=== PATIENT | female | born 1955 | race Caucasian/White ===

== ENCOUNTER 2017-03-06 14:54 | Inpatient (IN) | payer MEDICARE, MEDICAID ==
[~2017-03-06] VITALS: Ht 172.7 cm; Wt 94.5 kg
[2017-03-06 15:47] LABS: BILIRUBIN,URINE NEGATIVE (NEGATIVE); UROBILINOGEN,URINE NORMAL (NEGATIVE)
[2017-03-06 15:49] LABS: APPEARANCE,URINE CLEAR (CLEAR); UA COLOR YELLOW (YELLOW)
--- NOTE | 2017-03-06 15:56 | DIREP ---
PROCEDURE:CHEST 2 VIEWS COMPARISON:None. INDICATIONS:medical clearance FINDINGS: LUNGS/PLEURA:No significant pulmonary parenchymal abnormalities. No effusions. VASCULATURE:Normal. Unremarkable pulmonary vasculature. CARDIAC:Normal. No cardiac silhouette abnormality or cardiomegaly. MEDIASTINUM:Normal. No visible mass or adenopathy. BONES:Mild degenerative disc disease and spondylosis without visible acute abnormalities. OTHER:Negative. CONCLUSION:No acute disease. Dictated by: Mak Eisenberg MD on 03/06/2017 at 03:54 PM
[2017-03-06 15:58] LABS: BASOPHIL % 0.5 % (0.0-0.2); EOSINOPHIL # 0.2 10^3/uL (0.0-0.2); HEMATOCRIT 46.8 % (36.0-46.0); HEMOGLOBIN 14.7 g/dL (12.0-15.0); LYMPHOCYTES # 2.8 10^3/uL (1.0-4.8); LYMPHOCYTES % 34.8 % (24.0-44.0); MEAN CELL HGB 30.3 pg (26-34); MEAN CELL HGB CONCENTRATION 31.4 g/dL (33-37); MEAN CORP VOLUME 96.5 fL (78-100); MEAN PLATELET VOLUME 10.9 fL (7.8-11.0); MONOCYTES # 0.7 10^3/uL (0.3-0.8); MONOCYTES % 8.2 % (5.0-12.0); NEUTROPHIL # 4.2 10^3/uL (1.8-7.7); NEUTROPHILS % 53.4 % (41.0-85.0); RED CELL DISTRIBUTION WIDTH 13.8 % (11.5-14.5); WHITE BLOOD CELL 7.9 10^3/uL (4.5-11.0)
[2017-03-06 16:01] LABS: UR BENZODIAZEPINE QUAL NEGATIVE (NEGATIVE); UR COCAINE QUAL NEGATIVE (NEGATIVE)
[2017-03-06 16:27] LABS: ABG PCO2 44.6 mmHg (35.0-45.0); ABG PH 7.382 (7.350-7.450); BE(B) 0.5 mmol/L (-2.0-2.0); HCO3act 25.9 mmol/L (22.0-26.0); pO2 66.4 mmHg (75.0-100.0)
[2017-03-06 16:41] LABS: ALANINE AMINOTRANSFERASE 36 U/L (12-78); ALKALINE PHOSPHATASE 46 U/L (50-136); ASPARTATE AMINO TRANSFERASE 15 U/L (0-35); CALCIUM 9.8 mg/dL (8.4-10.5); CARBON DIOXIDE 27.4 mmol/L (20.0-32); CHOLESTEROL 90 mg/dL (120-240); GLUCOSE 102 mg/dL (70-110); HDL CHOLESTEROL 40 mg/dL (32-96)
--- NOTE | 2017-03-06 16:47 | NUR ---
DR JAGRUTI POLLARD ON PHONE WITH DR CHAND
--- NOTE | 2017-03-06 16:56 | ER.PDOC ---
General Chief Complaint: Medical Clearance Stated Complaint: MEDICAL CLEARANCE Time seen by MD: 15:00 Source: patient History of Present Illness Initial Comments agitated, aggressive behavior Timing/Duration: week Severity: moderate Associated Symptoms: Angry, Frustrated, Agitated, Hostile, Paranoid Prior symptoms/Treatment: Similar symptoms previous Allergies: Coded Allergies: No Known Allergies (Unverified , 03/06/17) Past Medical History Medical History: high cholesterol, thyroid disease Social History Smoking: non-smoker Alcohol Use: none Drug Use: none Review of Systems Constitutional: no symptoms reported EENTM: no symptoms reported Respiratory: no symptoms reported Cardiovascular: no symptoms reported Gastrointestinal: no symptoms reported Genitourinary: no symptoms reported Musculoskeletal: no symptoms reported Skin: no symptoms reported Physical Exam General Appearance: No acute distress, Alert EENT: No nystagmus Neck: Non-Tender Respiratory: chest non-tender, lungs clear, normal breath sounds Cardiovascular: Normal Peripheral Pulses, Regular Rate, Rhythm, No Edema Gastrointestinal: Normal Bowel Sounds Extremities: Non-Tender Neurological/Psychiatric: Alert Behavior/Eye Contact/Speech: Other (rushed speech, irritable, labile mood) Thoughts/Hallucinations: Delusions Skin: Normal Color Results/Orders Results/Orders Laboratory Tests Test 03/06/17 00:00 03/06/17 15:25 03/06/17 16:24 Urine Collection Type Unknown Urine Color Yellow (YELLOW) Urine Appearance Clear (CLEAR) Urine Bilirubin Negative MG/DL (NEGATIVE) Urine Ketones Negative (NEGATIVE) Urine Specific [place] 1.010 (1.005-1.035) Urine pH 7 (5.0-6.0) Urine Protein Negative (NEGATIVE) Urine Urobilinogen Normal (NEGATIVE) Urine Nitrate Negative (NEGATIVE) Urine Leukocyte Esterase Negative (NEGATIVE) Urine Blood Negative (NEGATIVE) Urine Glucose Normal (NEGATIVE) Opiates Screen Negative (NEGATIVE) Barbiturate Screen Negative (NEGATIVE) Urine Tricyclic Antidepressants Negative (NEGATIVE) Phencyclidine (PCP) Screen Negative (NEGATIVE) Amphetamines Screen Negative (NEGATIVE) Benzodiazepines Screen Negative (NEGATIVE) Cocaine Screen Negative (NEGATIVE) Ur Tetrahydrocannabinol (THC) Scrn Negative (NEGATIVE) White Blood Count 7.9 10^3/uL (4.5-11.0) Red Blood Count 4.85 10^6/uL (4.00-5.20) Hemoglobin 14.7 g/dL (12.0-15.0) Hematocrit 46.8 % (36.0-46.0) Mean Corpuscular Volume 96.5 fL (78-100) Mean Corpuscular Hemoglobin 30.3 pg (26-34) Mean Corpuscular Hemoglobin Concent 31.4 g/dL (33-37) Red Cell Distribution Width 13.8 % (11.5-14.5) Platelet Count 191 10^3/uL (150-400) Mean Platelet Volume 10.9 fL (7.8-11.0) Neutrophils (%) (Auto) 53.4 % (41.0-85.0) Lymphocytes (%) (Auto) 34.8 % (24.0-44.0) Monocytes (%) (Auto) 8.2 % (5.0-12.0) Neutrophils # (Auto) 4.2 10^3/uL (1.8-7.7) Lymphocytes # (Auto) 2.8 10^3/uL (1.0-4.8) Monocytes # (Auto) 0.7 10^3/uL (0.3-0.8) Absolute Immature Granulocyte (auto 0.01 10^3 u/L (0-2) Eosinophils % 3.0 % (0.0-5.0) Basophils % 0.5 % (0.0-0.2) Basophils # 0.0 10^3/uL (0.0-0.1) Eosinophil Count 0.2 10^3/uL (0.0-0.2) Sodium Level 145 mmol/L (132-145) Potassium Level 3.8 mmol/L (3.6-5.2) Chloride Level 108.0 mmol/L (96-109) Carbon Dioxide Level 27.4 mmol/L (20.0-32) Anion Gap 13.4 Blood Urea Nitrogen 12 mg/dL (7-18) Creatinine 0.88 mg/dL (0.59-1.40) Estimated GFR () 78.5 BUN/Creatinine Ratio 13.0 Glucose Level 102 mg/dL (70-110) Hemoglobin A1c 6.2 % (4.2-6.2) Calculated Osmolality 299.2 Calcium Level 9.8 mg/dL (8.4-10.5) Total Bilirubin 0.2 mg/dL (0.2-1.0) Aspartate Amino Transf (AST/SGOT) 15 U/L (0-35) Alanine Aminotransferase (ALT/SGPT) 36 U/L (12-78) Alkaline Phosphatase 46 U/L (50-136) Total Creatine Kinase 35 U/L (26-192) Creatine Kinase MB 0.4 ng/mL (0.5-3.6) Troponin I < 0.02 ng/mL (0.00-0.05) C-Reactive Protein 0.10 mg/dL (0.00-5.00) Pro-B-Type Natriuretic Peptide 42 pg/mL (0-125) Total Protein 6.8 g/dL (6.4-8.2) Albumin 3.6 g/dL (3.4-5.0) Globulin 3.2 Triglycerides Level 111 mg/dL (20-200) Cholesterol Level 90 mg/dL (120-240) LDL Cholesterol, Calculated 27.8 VLDL Cholesterol 22.2 HDL Cholesterol 40 mg/dL (32-96) Cholesterol Ratio (LDL/HDL) 0.6 Cholesterol/HDL Ratio [id number] Thyroid Stimulating Hormone (TSH) 3.435 mIU/mL (0.358-3.740) Valproic Acid (Depakene) Level < 3 ug/mL (50-100) [place] Level 0.85 mmol/L (0.6-1.2) Percent Immature Gran (Cell Imm) 0.10 % (0.00-0.50) Blood Gas Sample Site Rt radial artery Blood Gas pH 7.382 (7.350-7.450) Blood Gas PCO2 44.6 mmHg (35.0-45.0) Blood Gas PO2 66.4 mmHg (75.0-100.0) Blood Gas HCO3 25.9 mmol/L (22.0-26.0) Blood Gas Base Excess 0.5 mmol/L (-2.0-2.0) Har[place] Test Positive Arterial Blood Oxygen Saturation 92.6 % (95-) Deoxyhemoglobin 6.9 % (0.2-0.6) Carboxyhemoglobin 6.0 % (0.5-1.5) Methemoglobin 0.2 % (0.2-0.6) Total Hemoglobin 15.2 % (13.5-17.5) Total Oxygen Concentration 18.6 % (13.5-17.5) Lactic Acid (Blood Gas) 1.3 MMOL/L (0.5-1.0) Blood Gas Temperature 37 Oxygen Delivery Method (LAB) Ra FiO2 21 % (20-101) Bicarbonate 27.3 mmol/L (23-27) Departure Time of Disposition: 16:55 Disposition: 09 ADMITTED INPATIENT Impression: Primary Impression: Psychosis Condition: Stable Referrals: PCP,UNKNOWN (PCP) PRIMARY CARE PROVIDER TREY POLLARD MD March 06, 2017 16:56
--- NOTE | 2017-03-06 17:30 | NUR ---
On unit Pt ambulated onto unit alongside x [address] [facility] staff member, Fiordaliza Lowery, RN, and security. Pt demanding to be taken out to smoke, repeatedly stating, "I'm supposed to be here 3 days. They have my papers. You're going to let me out of here in 3 days." Pt threatening staff, stating, "I'm going to take you fucking bitches to long term if you don't let me out of here." Continues to exhibit inappropriate behavior, unable to be redirected with verbalization.
[2017-03-06 17:32] VITALS: BP 150/72
--- NOTE | 2017-03-06 17:34 | PRM.ACF1 ---
Admission Criteria Forms PSYCHIATRIC DISORDERS Clinical Indications for Inpatient Care (Place 'X' for any and all applicable criteria): Ongoing inpatient care may be needed for ANY ONE of the following(1)(2)(3)(4)(6) (7)(8): [ ]I. Danger to self or others not manageable at lower level of care. [ ]II. Grave disability (eg, inability to perform self care necessary at lower level of care) [ ]III. Agitation or inappropriate behavior interfering with care for primary condition (eg, attempting to discontinue lines or drains prematurely, unable to cooperate with respiratory care) [X]IV. Severe disability or disorder indicated by ALL of the following: [X]a) Severe behavioral health disorder-related symptoms or condition indicated by ANY ONE of the following: [ ]i) Severe problem with cognition, memory, judgment, or impulse control [X]ii) Severe clinical manifestations (eg, hallucinations, delusions, other acute psychotic symptoms, zhane, extreme agitation or anxiety) [X]b) Patient management at lower level of care is not feasible until acute intervention or modification is initiated. Extended stay beyond goal length of stay for the primary condition may be indicated when ANY ONE of the following is present: (1)(2)(3)(4): [ ]a) Patient is a danger to self or others and not manageable at lower level of care. [ ]b) Behavior crisis management, including physical or chemical restraints, is required and is not available at a lower level of care. [ ]c) Behavioral symptoms (e.g., agitation, somnolence, inappropriate behavior) are present, and are not manageable at a lower level of care. [ ]d) Patient cannot understand follow-up treatment and crisis plan. [ ]e) Provider and supports are not sufficiently available at lower level of care. [ ]f) Patient cannot participate (e.g., verify absence of plan for harm) and is in needed of monitoring. The original [facility] content created by [facility] [employer] has been revised. The portions of the content which have been revised are identified through the use of italic text or in bold, and [facility] has neither reviewed nor approved the modified material. All other unmodified content is copyright [facility]. Please see references footnoted in the original [facility] edition 2016 Physician order is complete/pr: Yes JOVANY MCKEON PRIMERA-PEÑA March 06, 2017 17:34
[2017-03-06] MEDS ORDERED: ATOR20TA PO (17:40)
[2017-03-06] MEDS ORDERED: SERT50TA PO (17:40)
[2017-03-06] MEDS ORDERED: FLUT16SP (17:40)
[2017-03-06] MEDS ORDERED: ZIPR40CA2 PO (17:40)
[2017-03-06] MEDS ORDERED: LITH300C PO (17:40)
[2017-03-06] MEDS ORDERED: LEVO50TA6 PO (17:40)
[2017-03-06] MEDS ORDERED: CHOL100011 PO (17:40)
[2017-03-06] MEDS ORDERED: BENZ1TAB5 PO (17:40)
[2017-03-06] MEDS ORDERED: MAGN400O4 PO (17:40)
[2017-03-06] MEDS ORDERED: CETI10TA18 PO (17:40)
--- NOTE | 2017-03-06 17:46 | NUR ---
Dr. Eduardo Clark called and notified regarding pt's behaviors, received new orders, see EMAR.
[2017-03-06] MEDS ORDERED: HALDOL PO PRN (18:00)
[2017-03-06] MEDS ORDERED: ATIVAN IM PRN (18:00)
[2017-03-06] MEDS ORDERED: HALDOL IM PRN (18:00)
[2017-03-06] MEDS ORDERED: GEODON ONE (18:41)
[2017-03-06 19:15] VITALS: BP 116/64
[2017-03-06] MEDS: DEPAKOTE ER PO SCH (20:42)
[2017-03-06] MEDS: GEODON PO SCH (20:42)
[2017-03-06] MEDS: ATIVAN PO PRN (21:02)
--- NOTE | 2017-03-06 21:14 | NUR ---
medications Patient aggitated cursing staff and insisting on going out to smoke, calling staff liars about the smoking policy,RN notified, ativan 1mg given po per prn orders at 2101
--- NOTE | 2017-03-06 22:12 | NUR ---
medications No adverse reactions noted to ID of ativan and depakote at this time
--- NOTE | 2017-03-07 01:51 | NUR ---
behaviors PT. IN DAY ROOM FOLLOWING SHIFT REPORT, DEMANDING TO GO SMOKE,CALLING STAFF FUCKING LIARS AND CALLING STAFF INAPPROPRIATE NAMES. PT. WAS YELLING IN LOUD VOICE , EXPRESSES HER ANGER AND GOES TO HER ROOM THEN SHORTLY RETURNED SAYING SAME ABOVE. PT.EXHIBITING IMPULSIVE,LABILE BEHAVIORS AND CONTINUES TO CUSS THE STAFF AND CHECK CLERK. PT. WALKED DOWN HALLWAY ON HER WAY TO HER ROOM AND TOLD NURSE,'I'LL BEAT THE SHIT OUT OF YOU BITCH." TRAVEL TICKETING REVIEWER HAS BEEN STAYING ON UNIT AT TIMES. ONCE PT. SUDDENLY CAME OUT OF HER ROOM TO NURSE'S STATION,DEMANDED TO GO SMOKE AND WHEN NURSE TOLD HER AGAIN THAT THIS IS A NO SMOKING FACILITY PT. REACHED OVER THE COUNTER AND POINTED HER FINGER AT NURSE AND CALLED HER A LIAR AND CURSING. PT. HAS BEEN OFFERED A NICOTINE PATCH SEVERAL TIMES THIS SHIFT BUT SHE REFUSED. REFUSED SNACKS. PT. RECEIVED ATIVAN 1 MG PO AT 2101. PT. WENT TO HER ROOM AND LAID DOWN ON BED AT 2104. HS MEDICATIONS WERE OFFERED AND PT. DID TAKE MEDICATION. RESTING IN BED WITH EYES CLOSED ,SNORING AT THIS TIME.
[2017-03-07] MEDS ORDERED: GEODON ONE (06:16)
--- NOTE | 2017-03-07 06:18 | NUR ---
behaviors Pt. slept 5.5 hours this shift. pt. is in hallway at this time cursing staff AND DEMANDING TO GO SMOKE. PT. LOOKED IN PEER'S ROOM FROM HALLWAY AND STATED THAT WHO EVER IS IN THAT ROOM STOLE HER CLOTHES. PT. NOT REDIRECTABLE
[2017-03-07 08:08] VITALS: BP 115/66
[2017-03-07] MEDS: COGENTIN PO SCH (08:18)
[2017-03-07] MEDS: ATIVAN PO PRN ×2 (08:18→20:24)
[2017-03-07] MEDS: GEODON PO SCH ×3 (08:18→20:25)
[2017-03-07] MEDS: CELEXA PO SCH (08:18)
--- NOTE | 2017-03-07 08:20 | NUR ---
Behavior Pt verbally aggressive, cursing @ staff and other pt's, pacing calvo. Unable to be redirected with verbalization.
--- NOTE | 2017-03-07 08:20 | NUR ---
BEHAVIOR PT IS CURSING STAFF WHEN EXPLAINED THAT CAN NOT GO SMOKE DUE TO BEING A NON SMOKING FACILITY. PT WAS GIVEN A COPY OF THE RULES THAT EXPLAINED THE POLICY. STATED DID NOT WANT TO READ THAT. IS GOING BACK AND FORTH FROM HER ROOM TO THE DAY ROOM. ASKING EVERYONE THAT SHE SEES. WHEN MEDICAL RECORDS CAME IN SHE ASKED HIM AND CURSED HIM WHEN HE EXPLAINED THE POLICY ALSO. ATIVAN 1MG PO GIVEN FOR BEHAVIOR. WILL MONITOR.
--- NOTE | 2017-03-07 08:34 | NUR ---
MMSE: 03/28 PT REFUSED MOST OF THIS ASSESSMENT STATING THAT THIS WORKER IS A "FU----- BITCH AND A NIG-- WHO IS HAVING SEX WITH HER GRANDDAUGHTER." THIS WORKER LEFT THE ROOM. Addendum: 03/07/17 at 0837 by Francisca Hough LMSW, RYAN DHALIWAL Amended: Links added.
--- NOTE | 2017-03-07 08:40 | NUR ---
STATE PLACEMENT: SW CONTACTED [facility] CRISES LINE FOR EVALUATION FOR STATE PLACE PLACEMENT DUE TO IMPULSIVE, AGGRESSIVE AND PSYCHOTIC BEHAVIORS. PT HAS BEEN EXTREMELY VERBALLY AGGRESSIVE TOWARD STAFF AND OTHER PATIENTS TO THE POINT THAT SHE IS SCARING PATIENTS AND MAKING THEM TEARFUL. PT IS REFUSING CARE WELL ASSESSMENTS. [facility] WORKER CALLED BACK AND INFORMED THIS WORKER THAT HE WILL BE CALLING HIS REWIND OPERATOR AND WORKER WHO ASSISTS IN PLACING A PATIENT IN A [facility]. SS TO FOLLOW.
--- NOTE | 2017-03-07 09:15 | NUR ---
Behavior Pt was cooperative with shower, after ADL complete, came to nurse's station and stated, "I won't act out if you'll give me some coffee, please." Pt was given luke-warm coffee, thanked staff and went to room to apply lotion to BLE.
--- NOTE | 2017-03-07 09:45 | NUR ---
VSEE Pt was seen by Dr. Clark via telemed. No new orders received @ this time. Pt agreed to talk to Dr. Clark, answered all questions. Denies depression, states, "I feel fine." Alert and oriented x 3, exhibits delusional thinking. Believes staff at [facility] are trying to kill her. Reports wishes not to go back to facility, and reports wanting to go live in a facility in [place], [place]. Otherwise, pt continues to inquire about smoking @ facility, stated, "They told me at [facility] that you have a smoking area, you go smoke every 3 hours." Pt was able to be redirected.
--- NOTE | 2017-03-07 09:45 | NUR ---
BEHAVIOR PT IS IN THE DAY ROOM IN GROUP. IS IN A MORE COOPERATIVE MOOD AT THIS TIME. IS PARTICIPATING IN GROUP.
--- NOTE | 2017-03-07 11:50 | HPH ---
ADMIT DATE: 03/06/2017 PSYCHIATRIC ADMISSION NOTE TIME: 99:00-10:00. CHIEF COMPLAINT: Acute psychosis with depression. HISTORY OF PRESENT ILLNESS: This patient is an elderly female who has a diagnosis of schizoaffective disorder, bipolar type, who presents from the [facility] in [place]. She had been in the psychiatric hospital for days and had not responded, was discharged back to the [facility] and then was quite psychotic, delusional, agitated, labile, threatening and was sent to the [facility] under court order. She is showing evidence of psychosis with delusional thoughts, paranoia, ideas of reference, thought broadcasting and auditory hallucinations. She felt that the people in the ch[facility] were going to kill her and she was going to kill them before they kill her. Mood is depressed at this time. No manic symptoms. Mood depressed with disturbances in sleep, appetite, energy and concentration. The patient has been extremely threatening and volatile while on the unit just this brief period of time. She is being observed closely to prevent harm to herself and others. PAST PSYCHIATRIC HISTORY: Significant for schizoaffective disorder with multiple psychiatric hospitalizations in the past. PAST MEDICAL HISTORY: Coronary artery disease. ALLERGIES: NO KNOWN DRUG ALLERGIES. CURRENT MEDICATIONS: Valproic acid, which was just started at 250 mg, Celexa, which was just started at 10 mg and Geodon 40 mg 3 times a day. FAMILY PSYCHIATRIC HISTORY: Unknown at this time. SOCIAL HISTORY: The patient was living in a [facility] in [place], likely that she will be able to go back. She was raised in [place], and . She has 1 child, a daughter who is a home and school visitor. She attended some college, does smoke and does not drink alcohol. OBJECTIVE: VITAL SIGNS: Temperature 98.2, pulse 85, respirations 20, oxygen saturation 98%, blood pressure 116/56. REVIEW OF SYSTEMS: HEENT: Normal. RESPIRATORY: No shortness of breath, coughing or wheezing. CARDIAC: No chest pain or palpitations. GASTROINTESTINAL: No nausea, vomiting, diarrhea or constipation. GENITOURINARY: No difficulty with urination. EXTREMITIES: No swelling or edema. MUSCULOSKELETAL: No muscle pain. NEUROLOGIC: Normal. ENDOCRINE: Normal. MENTAL STATUS EXAMINATION: Reveals an alert female with decreased psychomotor activity. Concentration and memory are intact. Speech and language are normal. Orientation is full. Intelligence is average. Mood assessed as depressed. Affect is constricted. Insight and judgment are poor. Thought is illogical, positive delusional thought with acute psychotic symptoms. ASSESSMENT AND PLAN: DIAGNOSES: AXIS I: Schizoaffective disorder, bipolar type, depressed. AXIS II: Deferred. AXIS III: Refer to past medical history. AXIS IV: Stress of mental illness. AXIS V: Current global assessment of functioning of 20. TREATMENT PLAN: 1. This patient was admitted involuntarily to the [facility] and is being observed closely to prevent harm to herself and others. 2. She was placed on medications outlined above. 3. She is to participate in groups, therapies and activities. 4. [facility] upon how severe her psychotic symptoms get and how she responds to medications. Long Clark MD DR: RASHID/jackson JOB# [id number]
--- NOTE | 2017-03-07 13:38 | PCM.HP ---
History of Present Illness Reason for Visit: Psychosis and agitation History of Present Illness 61 y/o F with PMHx of HTN, HLD, Obesity, Dementia who presented with agitation and behavior disturbance at . Unable to obtain medical history or ROS from her because the patient is psychotic, agitated, and uncooperative. She has no acute medical issues and her chronic medical issues are stable. Past Medical History Cardiac: HTN, Hyperlipidemia Ab: Uncooperative, Poor eye contact, Hostile, Psychomotor agitation Past Surgical History: No pertinent hx Past Social History Smoke: No Alcohol: none Drugs: None Lives: Group Home Travel Hx EBOLA RISK:Travel to/contact w: No Is pt experiencing any Ebola s: No Review of Systems Constitutional: Other (Unable to obtain 2/2 psychosis and agitation) Eyes: Other (Unable to obtain 2/2 psychosis and agitation) ENT: Other (Unable to obtain 2/2 psychosis and agitation) Respiratory: Other Cardiovascular: Other (Unable to obtain 2/2 psychosis and agitation) Gastrointestinal: Other (Unable to obtain 2/2 psychosis and agitation) Genitourinary: Other (Unable to obtain 2/2 psychosis and agitation) Musculoskeletal: other (Unable to obtain 2/2 psychosis and agitation) Skin: Other (Unable to obtain 2/2 psychosis and agitation) Neurological: Other (Unable to obtain 2/2 psychosis and agitation) Allergies: Coded Allergies: No Known Allergies (Unverified , 03/06/17) Scheduled Atorvastatin 20MG (Lipitor 20MG), 20 MG PO HS, (Reported) Benztropine Mesylate (Benztropine Mesylate), 1 MG PO DAILY, (Reported) Cetirizine Hcl (Cetirizine Hcl), 1 TAB PO DAILY, (Reported) Cholecalciferol (Vitamin D3) (Vitamin D), 1 CAP PO DAILY, (Reported) Citalopram Hydrobromide (Celexa), 10 MG PO DAILY Divalproex Sodium (Depakote Er), 1,000 MG PO HS Fluticasone Propionate (Fluticasone Propionate), 2 SPR NA DAILY, (Reported) Levothyroxine Sodium (Levothyroxine Sodium), 1 TAB PO DAILY, (Reported) Olanzapine (Zyprexa Zydis), 7.5 MG SL BID Ziprasidone Hcl (Geodon), 1 CAP PO TID, (Reported) Scheduled PRN Lorazepam (Ativan), 1 MG PO Q6HR PRN for AGITATION Magnesium Hydroxide (Milk Of Magnesia), 400 MG PO BID PRN for CONSTIPATION, ( Reported) VTE VTE Risk Total Score: 2 VTE Risk Score VTE Risk: Score 0-1 = Low Risk (Aggressive mobilization; early ambulation; no VTE prophylaxis required) Score 2: Moderate Risk (Intermittent/Pneumatic Compression Device OR Lovenox/Heparin/Coumadin) Score 3-4: High Risk (Intermittent/Pneumatic Compression Device AND Lovenox/Heparin/Coumadin) Score > or =5: Highest Risk (Intermittent/Pneumatic Compression Device AND Lovenox/Heparin/Coumadin) Antico:Hep/LMWH/Coum/Xarelto: No Mechanical device ordered: No VTE VTE Present on Admission: No Currently receiving anticoagul: No VTE Risk Total Score: 2 Exam Vital Signs Vital Signs Date Time Temp Pulse Resp B/P (MAP) Pulse Ox O2 Delivery O2 Flow Rate FiO2 03/07/17 08:08 98.2 85 20 115/66 (82) 92 Room Air General Appearance: Alert, No acute distress, Other (Limited exam 2/2 psychosis and agitation) HEENT: Atraumatic, EOMI, Mucous membr. moist/pink, Other (Limited exam 2/2 psychosis and agitation) Respiratory: Other (Limited exam 2/2 psychosis and agitation) Cardiovascular: Other (Limited exam 2/2 psychosis and agitation) Abdominal: Other (Limited exam 2/2 psychosis and agitation) Extremities: Other Skin: Other (Limited exam 2/2 psychosis and agitation) Neuro: Other (Limited exam 2/2 psychosis and agitation) Psych/Mental Status: Other Assessment/Plan Assessment/Plan Assessment/Plan Orders - ROMANA CHAND MD Resuscitation Status (03/07/17 03:29) Atorvastatin Calcium (Lipitor) (03/07/17 21:00) Cetirizine Hcl (Zyrtec) (03/08/17 09:00) Fluticasone Propionate (Flonase) (03/08/17 09:00) Levothyroxine Sodium (Synthroid) (03/08/17 09:00) (Nf) Cholecalciferol (Vitamin D3) (Vitam (03/08/17 09:00) First Vital Signs Date Time Temp Pulse Resp B/P (MAP) Pulse Ox O2 Delivery O2 Flow Rate FiO2 03/06/17 15:24 98.3 83 18 95 03/06/17 17:19 131/79 (96) 03/06/17 17:32 Room Air Last Vital Signs Date Time Temp Pulse Resp B/P (MAP) Pulse Ox O2 Delivery O2 Flow Rate FiO2 03/07/17 08:08 98.2 85 20 115/66 (82) 92 Room Air Intake and Output 03/07/17 07:00 # Voids 1 Laboratory Tests Test 03/06/17 15:25 03/06/17 15:30 03/06/17 16:24 White Blood Count 7.9 10^3/uL Red Blood Count 4.85 10^6/uL Hemoglobin 14.7 g/dL Hematocrit 46.8 % Mean Corpuscular Volume 96.5 fL Mean Corpuscular Hemoglobin 30.3 pg Mean Corpuscular Hemoglobin Concent 31.4 g/dL Red Cell Distribution Width 13.8 % Platelet Count 191 10^3/uL Mean Platelet Volume 10.9 fL Neutrophils (%) (Auto) 53.4 % Lymphocytes (%) (Auto) 34.8 % Monocytes (%) (Auto) 8.2 % Neutrophils # (Auto) 4.2 10^3/uL Lymphocytes # (Auto) 2.8 10^3/uL Monocytes # (Auto) 0.7 10^3/uL Absolute Immature Granulocyte (auto 0.01 10^3 u/L Eosinophils % 3.0 % Basophils % 0.5 % Basophils # 0.0 10^3/uL Eosinophil Count 0.2 10^3/uL Sodium Level 145 mmol/L Potassium Level 3.8 mmol/L Chloride Level 108.0 mmol/L Carbon Dioxide Level 27.4 mmol/L Anion Gap 13.4 Blood Urea Nitrogen 12 mg/dL Creatinine 0.88 mg/dL Estimated GFR () 78.5 BUN/Creatinine Ratio 13.0 Glucose Level 102 mg/dL Hemoglobin A1c 6.2 % Calculated Osmolality 299.2 Calcium Level 9.8 mg/dL Total Bilirubin 0.2 mg/dL Aspartate Amino Transf (AST/SGOT) 15 U/L Alanine Aminotransferase (ALT/SGPT) 36 U/L Alkaline Phosphatase 46 U/L Total Creatine Kinase 35 U/L Creatine Kinase MB 0.4 ng/mL Troponin I < 0.02 ng/mL C-Reactive Protein 0.10 mg/dL Pro-B-Type Natriuretic Peptide 42 pg/mL Total Protein 6.8 g/dL Albumin 3.6 g/dL Globulin 3.2 Triglycerides Level 111 mg/dL Cholesterol Level 90 mg/dL LDL Cholesterol, Calculated 27.8 VLDL Cholesterol 22.2 HDL Cholesterol 40 mg/dL Cholesterol Ratio (LDL/HDL) 0.6 Cholesterol/HDL Ratio 2.997774 Thyroid Stimulating Hormone (TSH) 3.435 mIU/mL Valproic Acid (Depakene) Level < 3 ug/mL [place] Level 0.85 mmol/L Percent Immature Gran (Cell Imm) 0.10 % Prothrombin Time 9.9 SEC Prothromb Time International Ratio 0.9 Activated Partial Thromboplast Time 26.5 SEC Blood Gas Sample Site Rt radial artery Blood Gas pH 7.382 Blood Gas PCO2 44.6 mmHg Blood Gas PO2 66.4 mmHg Blood Gas HCO3 25.9 mmol/L Blood Gas Base Excess 0.5 mmol/L Harmeet Test Positive Arterial Blood Oxygen Saturation 92.6 % Deoxyhemoglobin 6.9 % Carboxyhemoglobin 6.0 % Methemoglobin 0.2 % Total Hemoglobin 15.2 % Total Oxygen Concentration 18.6 % Lactic Acid (Blood Gas) 1.3 MMOL/L Blood Gas Temperature 37 Oxygen Delivery Method (LAB) Ra FiO2 21 % Bicarbonate 27.3 mmol/L Current Medications Medications (Trade) Dose Ordered Sig/Fermin Route PRN Reason Start Time Stop Time Status Last Admin Dose Admin Benztropine Mesylate (Cogentin) 1 mg DAILY PO 03/07/17 09:00 04/06/17 08:59 03/07/17 08:18 Ziprasidone (Geodon) 40 mg TID PO 03/06/17 21:00 03/07/17 09:39 DC 03/07/17 08:18 Divalproex Sodium (Depakote Er) 250 mg HS PO 03/06/17 21:00 04/05/17 20:59 03/06/17 20:42 Citalopram Hydrobromide (Celexa) 10 mg DAILY PO 03/07/17 09:00 04/06/17 08:59 03/07/17 08:18 Lorazepam (Ativan) 1 mg Q6HR PRN IM AGITATION 03/06/17 18:00 04/05/17 17:59 Lorazepam (Ativan) 1 mg Q6HR PRN PO AGITATION 03/06/17 18:00 04/05/17 17:59 03/07/17 08:18 Haloperidol (Haldol) 2 mg Q6HR PRN PO AGITATION/PSYCHOSIS 03/06/17 18:00 04/05/17 17:59 Haloperidol Lactate (Haldol) 2 mg Q6HR PRN IM AGITATION/PSYCHOSIS 03/06/17 18:00 04/05/17 17:59 Ziprasidone (Geodon) 20 mg STK-MED ONCE .ROUTE 03/06/17 18:41 03/06/17 20:42 DC Ziprasidone (Geodon) 20 mg STK-MED ONCE .ROUTE 03/07/17 06:16 03/07/17 08:17 DC Ziprasidone (Geodon) 40 mg TID PO 03/07/17 09:39 04/05/17 20:59 Problems: (1) Psychosis Status: Acute ICD Code: F29 - Unspecified psychosis not due to a substance or known physiological condition SNOMED: 97347612 (2) Schizoaffective disorder, bipolar type Status: Chronic ICD Code: F25.0 - Schizoaffective disorder, bipolar type SNOMED: 81632322 (3) Dementia with behavioral disturbance Status: Acute ICD Code: F03.91 - Unspecified dementia with behavioral disturbance SNOMED: 4152041052755 (4) Hyperlipidemia Status: Chronic ICD Code: E78.5 - Hyperlipidemia, unspecified SNOMED: 13252703 (5) Essential (primary) hypertension Status: Chronic ICD Code: I10 - Essential (primary) hypertension SNOMED: 77918473 (6) Hypothyroidism Status: Chronic ICD Code: E03.9 - Hypothyroidism, unspecified SNOMED: 45660758 Patient History: ROMANA CHAND MD March 07, 2017 13:38
--- NOTE | 2017-03-07 15:05 | NUR ---
GMAS: PT REFUSED ASSESSMENT. PT WAS VERBALLY AGGRESSIVE DURING ASSESSMENT AND CURSED THIS WORKER. Addendum: 03/08/17 at 1506 by Francisca Hough, SIMI, TEST ENGINEER SW Amended: Links added.
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
[2017-03-07] MEDS ORDERED: LIPITOR ONE (18:24)
[2017-03-07 19:15] VITALS: BP 123/64
[2017-03-07] MEDS: DEPAKOTE ER PO SCH (20:24)
[2017-03-07] MEDS: LIPITOR PO SCH (20:25)
--- NOTE | 2017-03-07 20:29 | NUR ---
medications Patient aggitated continueing to want to go outside to smoke, unable to redirect, RN notified and ativan 1mg given at this time po per prn orders
--- NOTE | 2017-03-08 03:10 | NUR ---
BEHAVIORS PT. WAS IN OWN ROOM TALKING TO SOMEONE NOT THERE. DENIES DEPRESSION,ANXIETY AND PAIN. ORIENTED TIMES THREE. PT. CAME TO GROUP BUT WAS RESTLESS AND WAS IN AND OUT OF GROUP AND DID NOT PARTICIPATE IN EXERCISES BUT DID EAT A SNACK. PT. WAS CONSTANTLY ASKING EACH STAFF MEMBER TO TAKE HER OUT TO SMOKE. NICOTINE PATCH WAS OFFERED AND PT. REFUSED. TEACHING ON SMOKING RULES WAS PROVIDED BUT PT. CONTINUED TO ASK TO GO SMOKE .
[2017-03-08] MEDS ORDERED: SYNTHROID ONE (03:29)
[2017-03-08] MEDS: SYNTHROID PO SCH (05:30)
[2017-03-08] MEDS ORDERED: CLARITIN ONE (06:48)
[2017-03-08] MEDS ORDERED: VITAMIN D ONE (06:49)
[2017-03-08 08:05] VITALS: BP 117/67
[2017-03-08] MEDS: COGENTIN PO SCH (08:48)
[2017-03-08] MEDS: CELEXA PO SCH (08:48)
[2017-03-08] MEDS: GEODON PO SCH ×3 (08:48→20:20)
[2017-03-08] MEDS: CLARITIN PO SCH (08:49)
[2017-03-08] MEDS: VITAMIN D PO SCH (08:50)
--- NOTE | 2017-03-08 09:10 | NUR ---
Tx team Pt was seen by Dr. Clark and treatment team. Affect bright, pleasant, and cooperative @ this time. Pt did begin cursing @ security system administrator in [employer] and told him to "go to hell." Pt is able to be redirected with verbalization @ this time. Denies depression, anxiety, SI, hallucinations. Continues to exhibit delusions regarding smoking privileges and going to court. No med changes @ this time, pt voices wanting to discharge to [facility] in [place], if possible, when ready. MADHURI Pinedo present and aware.
[2017-03-08] MEDS: FLONASE NS SCH (11:45)
--- NOTE | 2017-03-08 16:13 | NUR ---
BEHAVIOR CONTRACT/DC PLANNING: SW SPOKE TO PT REGARDING COURT DOCUMENTS AND PLACEMENT IN [place] REQUESTED BY PT. PT CHOSE SEVERAL FACILITIES IN [place] WHICH PROVIDED CONSENT TO RELEASE DOCUMENTS. SW STARTED EXPLAINING THE BEHAVIOR CONTRACT WITH PT SHE CONTINUES TO HAVE OUTBURSTS AND IMPULSIVE BEHAVIORS. PT STARTED GETTING ANGRY IN THE BEGINNING OF THE DISCUSSION, PT GOT UP AND VERBALIZED, "I DON'T WANT TO TALK ABOUT THIS ANYMORE BECAUSE I AM GETTING MAD." PT THEN LEFT THIS WORKERS OFFICE. SS TO FOLLOW
[2017-03-08 19:30] VITALS: BP 115/53
[2017-03-08] MEDS: LIPITOR PO SCH (20:20)
[2017-03-08] MEDS: DEPAKOTE ER PO SCH (20:20)
[2017-03-09] MEDS: SYNTHROID PO SCH (05:30)
[2017-03-09 07:40] VITALS: BP 130/62
[2017-03-09] MEDS: VITAMIN D PO SCH (08:34)
[2017-03-09] MEDS: GEODON PO SCH ×3 (08:34→21:09)
[2017-03-09] MEDS: FLONASE NS SCH (08:34)
[2017-03-09] MEDS: COGENTIN PO SCH (08:34)
[2017-03-09] MEDS: CLARITIN PO SCH (08:34)
[2017-03-09] MEDS: CELEXA PO SCH (08:34)
--- NOTE | 2017-03-09 09:41 | PNH ---
DATE: 03/08/2017 PSYCHIATRIC PROGRESS NOTE TIME: 8:40-9:00. HISTORY OF PRESENT ILLNESS: This patient was at a psychiatric hospital in [place] for 3-4 weeks and then discharged and subsequently was quite symptomatic with schizoaffective disorder, bipolar type, homicidal threats, psychosis, delusional thought, lability, agitation, feeling people were going to kill her and she was going to kill them first, depressed with depressed mood, disturbed sleep, appetite, energy and concentration. Very poor insight. The patient is improving somewhat at this time, although we were working aggressively with medications and therapy. She does remain a candidate for ongoing hospitalization. OBJECTIVE: VITAL SIGNS: Temperature 97.4, pulse 87, respirations 18, oxygen saturation 91% and blood pressure 115/67. REVIEW OF SYSTEMS: HEENT: Normal. RESPIRATORY: No shortness of breath, coughing or wheezing. CARDIAC: No chest pain or palpitations. GASTROINTESTINAL: No nausea, vomiting, diarrhea or constipation. GENITOURINARY: No difficulty with urination. EXTREMITIES: No swelling or edema. MUSCULOSKELETAL: No muscle pain. NEUROLOGIC: Normal. ENDOCRINE: Normal. MENTAL STATUS EXAMINATION: Reveals an alert female with decreased psychomotor activity. Concentration and memory are decreased. Speech and language are normal. Orientation appears to be full. Intelligence is average. Mood assessed as depressed. Affect is constricted. Insight and judgment are poor. Thought is illogical, positive delusional thought. ASSESSMENT AND PLAN: DIAGNOSES: AXIS I: Schizoaffective disorder, bipolar type, depressed. AXIS II: Deferred. AXIS III: Refer to past medical history. AXIS IV: Stress of mental illness. AXIS V: Current global assessment of functioning of 25. TREATMENT PLAN: 1. This patient was admitted to the [facility] involuntarily representing a danger or risk to herself and other individuals. 2. She has been placed on medications, specifically Depakote 250 mg a day, Celexa 10 mg a day and Geodon 40 mg 3 times a day. 3. She is participating in groups, therapies and activities. 4. She will be discharged back to a retirement setting when it is felt that she no longer represents a risk or danger to herself or other individuals. Long Clark MD DR: RASHID/jackson JOB# [id number]
--- NOTE | 2017-03-09 15:38 | PRM.PN ---
Mood: UP AND DOWN, DENIES FEELING DEPRESSED Sleep: SLEEP IS UP AND DOWN Appetite: NORMAL APPETITE Suidical thoughts: NONE REPORTED Homicidal thoughts: NONE REPORTED Recent stressors: STRESS OF MENTAL ILLNESS Family support: LIMITED, Aggressive Behavior: VERBALLY AGGRESSIVE TOWARDS STAFF Ability to Perform ADL'sc: ABLE TO DO ADLS Psychotic sympstoms: DELUSIONAL THINKING, ODD THINKING, PARANOIA Manic Symptoms: MOOD SWINGS Living situation: WAS LIVING IN [facility] [place] Illicit Drug usec: NONE REPORTED Alcoholo use: NONE REPORTED Tobacco use: SMOKES CIGARETTES OUTSIDE THIS FACILITY Family,PT,Surgical,&Current HX: Anxity Symptoms: MODERATE ANXIETY LEVEL Anger/Irritablility: SOME ANGER AND IRRITABILITY Muscle Strength & Tone: WNL Gait & Station: WNL Appearance: Well groomed/hygience, Casual attire, Normal weight, Appears age stated Attitude & Behaviour: Uncooperative, Poor eye contact, Psychomotor agitation Mood & Affect: Iabile, Depressed Orientation: Fully oriented per interv Attention/Concentration: Fair attention, Fair concentration Speech: Reg rate/vol/rhyth/prosod Judgement/Insight: Poor judgement, Poor insight Thought Process: Loose, Tangential Language: Syriac Thought content/Abnormal/Psych: A/V Pichardo, Delusions Fund of Knowledge: WNL Associations: CAROLINE Memory (recent and remote): Gross int/not form assess Constitutional: Insomnia Neurological: None Psychiatric: Depressed, Anxious, Psychosis [place] I: SCHIZOAFFECTIVE DISORDER; DEMENTIA [place] II: DEFERRED [place] III: REFER TO PMH/MEDICAL CHART [place] IV: STRESS OF MENTAL ILLNESS [place] V: GAF=25 Assessment/Plan Assessment/Plan Assessment/Plan First Vital Signs Date Time Temp Pulse Resp B/P (MAP) Pulse Ox O2 Delivery O2 Flow Rate FiO2 03/06/17 15:24 98.3 83 18 95 03/06/17 17:19 131/79 (96) 03/06/17 17:32 Room Air Last Vital Signs Date Time Temp Pulse Resp B/P (MAP) Pulse Ox O2 Delivery O2 Flow Rate FiO2 03/09/17 07:40 98.2 20 130/62 (84) 98 Room Air 03/08/17 19:30 69 THE PATIENT WAS SEEN BY DR. SILVA VIA TELEMEDICINE EQUIPMENT (VSEE) ALONG WITH THE TREATMENT TEAM. THE PATIENT HAS A HISTORY OF SCHIZOAFFECTIVE DISORDER. THE PATIENT HAS HAD SOME PROBLEMS WITH ANGER AND IRRITABILITY. THE PATIENT HAS BEEN VERBALLY AGGRESSIVE TOWARDS STAFF. THE PATIENT HAS STRUGGLED WITH PARANOIA. THE PATIENT HAS HAD RECENT HOMICIDAL IDEATION. THE PATIENT WAS NOT COOPERATIVE TODAY. YESTERDAY SHE WAS CURSING ST STAFF. THE PATIENT IS NORMALLY A SMOKER. THE PATIENT REFUSES A NICOTINE PATCH. THE PATIENT SLEPT 6.75 HOURS LAST NIGHT. THE PATIENT DENIES AUDITORY OR VISUAL HALLUCINATIONS. THE PATIENT REPORTS WAKING UP IN THE MIDDLE OF THE NIGHT. ASSESSMENT: SCHIZOAFFECTIVE DISORDER, BIPOLAR TYPE; GENERALIZED ANXIETY DISORDER PLAN: 1) CONTINUE [facility] MANAGEMENT. 2) INCREASE DEPAKOTE ER TO 500MG PO QHS. CONTINUE OTHER MEDICATIONS AT CURRENT DOSES. SUPPORTIVE THERAPY GIVEN. Problems: (1) Schizoaffective disorder, bipolar type Status: Acute ICD Code: F25.0 - Schizoaffective disorder, bipolar type SNOMED: 13772096 (2) Dementia with behavioral disturbance Status: Acute ICD Code: F03.91 - Unspecified dementia with behavioral disturbance SNOMED: 2110324050888 Patient History: RADHA SILVA IV, MD March 09, 2017 15:38
--- NOTE | 2017-03-09 16:32 | NUR ---
TREATMENT TEAM. PATIENT SEEN BY DR. SILVA TODAY IN TEAM. SHE CAME IN YELLING AT STAFF BECAUSE SHE SAID "I WAS LIED TO, I WAS ONLY SUPPOSED TO BE HERE 3 DAYS AND THEN GO TO [place]". DR. SILVA CLARIFIED THE MISCOMMUNICATION. DENIES SUICIDAL OR HOMICIDAL IDEATIONS. SHE SAYS SHE HAS NO FAMILY SUPPORT. SHE KEEPS ASKING TO SMOKE BUT REFUSES PATCH. VOICES NO DEPRESSION. DR. SILVA INCREASED DEPAKOTE TO 500MG AT HS. NO OTHER CHANGES TO PLAN OF CARE.
[2017-03-09] MEDS ORDERED: DEPAKOTE ER PO ONE (19:07)
[2017-03-09 19:40] VITALS: BP 104/53
[2017-03-09] MEDS: DEPAKOTE ER PO SCH (21:09)
[2017-03-09] MEDS: LIPITOR PO SCH (21:09)
--- NOTE | 2017-03-10 00:48 | NUR ---
BEHAVIORS PT. ORIENTED TIMES THREE, DENIES DEPRESSION,ANXIETY AND PAIN. ATTENDED GROUP BUT DECLINED TO DO EXERCISES BUT DID EAT A SNACK AND STATED SHE ACCOMPLISHED HER DAILY GOAL. PT. WAS PLEASANT AND EXHIBITED NO INAPPROPRIATE BEHAVIORS.
[2017-03-10] MEDS: SYNTHROID PO SCH (06:09)
[2017-03-10 07:57] VITALS: BP 127/73
[2017-03-10] MEDS: CLARITIN PO SCH (08:53)
[2017-03-10] MEDS: CELEXA PO SCH (08:53)
[2017-03-10] MEDS: COGENTIN PO SCH (08:53)
[2017-03-10] MEDS: GEODON PO SCH ×3 (08:53→20:02)
[2017-03-10] MEDS: VITAMIN D PO SCH (08:54)
[2017-03-10] MEDS: FLONASE NS SCH (08:54)
[2017-03-10] MEDS: MILK OF MAGNESIA PO PRN (10:03)
[2017-03-10 19:30] VITALS: BP 106/56
[2017-03-10] MEDS: LIPITOR PO SCH (20:02)
[2017-03-10] MEDS: DEPAKOTE ER PO SCH (20:03)
--- NOTE | 2017-03-11 00:59 | NUR ---
BEHAVIORS ORIENTED TIMES THREE. DENIES DEPRESSION,ANXIETY AND PAIN. ATTENDED GROUP,INITIATED INTERACTION WITH PEERS AND STAFF. NO INAPPROPRIATE BEHAVIORS NOTED. PT. LYING IN BED WITH EYES CLOSED AT THIS TIME.
[2017-03-11] MEDS: SYNTHROID PO SCH (05:30)
[2017-03-11] MEDS: FLONASE NS SCH (07:05)
[2017-03-11] MEDS: CELEXA PO SCH (07:05)
[2017-03-11] MEDS: GEODON PO SCH ×3 (07:05→20:15)
[2017-03-11] MEDS: CLARITIN PO SCH (07:05)
[2017-03-11] MEDS: VITAMIN D PO SCH (07:05)
[2017-03-11] MEDS: COGENTIN PO SCH (07:05)
[2017-03-11 07:52] VITALS: BP 105/73
[2017-03-11 19:30] VITALS: BP 128/70
[2017-03-11] MEDS: LIPITOR PO SCH (20:15)
[2017-03-11] MEDS: DEPAKOTE ER PO SCH (20:15)
[2017-03-12] MEDS: SYNTHROID PO SCH (05:35)
--- NOTE | 2017-03-12 07:53 | NUR ---
BEHAVIOR NOTE: Patient is in day room eating breakfast. She is calm and cooperative and is not combative this morning. She is alert and oriented and pleasant.
[2017-03-12 08:01] VITALS: BP 127/72
[2017-03-12] MEDS: GEODON PO SCH (09:04)
[2017-03-12] MEDS: COGENTIN PO SCH (09:04)
[2017-03-12] MEDS: CLARITIN PO SCH (09:05)
[2017-03-12] MEDS: VITAMIN D PO SCH (09:05)
[2017-03-12] MEDS: CELEXA PO SCH (09:05)
[2017-03-12] MEDS: FLONASE NS SCH (09:05)
--- NOTE | 2017-03-12 09:44 | PRM.PN ---
Mood: UP AND DOWN, POOR HISTORIAN Sleep: SLEPT 7.5 HOURS LAST NIGHT, NORMALLY SLEEPS WELL Appetite: NORMAL APPETITE Suidical thoughts: DENIES SI TODAY Homicidal thoughts: DENIES HI TODAY Recent stressors: STRESS OF MENTAL ILLNESS Family support: LIMITED Aggressive Behavior: NONE REPORTED THIS WEEKEND, COMBATIVE AT HER ASS[facility]ED [facility]IV[facility] Ability to Perform ADL'sc: YES Psychotic sympstoms: DELUSIONAL THINKING, ODD THINKING, PARANOIA, HX OF HALLUCINATIONS Manic Symptoms: MOOD SWINGS Living situation: LIVES AT [facility] Illicit Drug usec: NONE REPORTED Alcoholo use: NONE REPORTED Tobacco use: SMOKES OUTSIDE THIS FACILITY Family,PT,Surgical,&Current HX: Anger/Irritablility: SOME ANGER AND IRRITABILITY Muscle Strength & Tone: WNL Gait & Station: WNL Appearance: Appears older, Well groomed/hygience, Casual attire, Overweight Attitude & Behaviour: Cooperative/Pleasant, Good eye contact Mood & Affect: Iabile, Blunted, Angry, Depressed Orientation: Disoriented to time Attention/Concentration: Fair attention, Fair concentration Speech: Pressured, hyperverbal Judgement/Insight: Poor judgement, Poor insight Thought Process: Loose, Tangential Language: Pakistani Thought content/Abnormal/Psych: A/V Pichardo, Delusions Fund of Knowledge: Other Associations: CAROLINE Memory (recent and remote): Recent memory repaired, Remote memory repaired Constitutional: None Neurological: None Psychiatric: Depressed, Anxious, Psychosis [place] I: SCHIZOAFFECTIVE DISORDER, BIPOLAR TYPE; GENERALIZED ANXIETY DISORDER, DEMEN [place] II: DEFERRED [place] III: REFER TO PMH/MEDICAL CHART [place] IV: STRESS OF MENTAL ILLNESS [place] V: GAF=30 Assessment/Plan Assessment/Plan Assessment/Plan First Vital Signs Date Time Temp Pulse Resp B/P (MAP) Pulse Ox O2 Delivery O2 Flow Rate FiO2 03/06/17 15:24 98.3 83 18 95 03/06/17 17:19 131/79 (96) 03/06/17 17:32 Room Air Last Vital Signs Date Time Temp Pulse Resp B/P (MAP) Pulse Ox O2 Delivery O2 Flow Rate FiO2 03/12/17 08:01 96.9 89 16 127/72 (90) 93 Room Air THE PATIENT WAS SEEN BY DR. SILVA VIA TELEMEDICINE EQUIPMENT (VSEE) ALONG WITH NURSING STAFF. THE PATIENT HAS BEEN SLEEPING WELL THIS WEEKEND. THE PATIENT HAS A NORMAL APPETITE. THE PATIENT HAS NOT BEEN A BEHAVIOR PROBLEM THIS WEEKEND. THE PATIENT IS REPORTEDLY TAKING HER MEDICATIONS. THE PATIENT HAS NOT REQUIRED PRN MEDICATION. THE PATIENT IS TAKING HER MEDICATIONS. THE PATIENT DOES NOT LIKE THAT IS NOT ABLE TO SMOKE CIGARETTES. THE PATIENT CAME FROM [facility] IN [place], [place]. DEPAKOTE LEVEL 24 ON 03/09/17. THE PATIENT DOES HAVE ODD AND DELUSIONAL THINKING. SHE FEELS LIKE PEOPLE CAN READ HER MIND. ASSESSMENT: SCHIZOAFFECTIVE DISORDER, BIPOLAR TYPE; GENERALIZED ANXIETY DISORDER ; DEMENTIA WITH BEHAVIOR PROBLEMS PLAN: 1) CONTINUE [facility] MANAGEMENT. 2) DISCONTINUE GEODON. START ZYPREXA ZYDIS 5MG PO BID. CONTINUE OTHER CURRENT MEDICATIONS. 3) LABS: DEPAKOTE LEVEL ON Monday. STAFF AGREEABLE WITH THE PLAN. Problems: (1) Psychosis Status: Acute ICD Code: F29 - Unspecified psychosis not due to a substance or known physiological condition SNOMED: 88974679 (2) Schizoaffective disorder, bipolar type Status: Chronic ICD Code: F25.0 - Schizoaffective disorder, bipolar type SNOMED: 35374537 Patient History: RADHA SILVA IV, MD March 12, 2017 09:44
--- NOTE | 2017-03-12 16:17 | NUR ---
BEHAVIOR NOTE: During treatment team patient was delusional and paranoid stating " Staff can read my mind and they are stealing from my [employer]. Patient has been calm and cooperative and pleasant. Patient has NOT been combative.
[2017-03-12] MEDS ORDERED: ZYPREXA ZYDIS ONE (18:00)
[2017-03-12 19:30] VITALS: BP 108/69
[2017-03-12] MEDS: ZYPREXA ZYDIS SL SCH (20:02)
[2017-03-12] MEDS: LIPITOR PO SCH (20:02)
[2017-03-12] MEDS: DEPAKOTE ER PO SCH (20:02)
--- NOTE | 2017-03-12 21:14 | NUR ---
medications No adverse reactions noted to ID of zyprexa at this time
--- NOTE | 2017-03-13 04:11 | NUR ---
BEHAVIORS PT. ORIENTED TO NAME,MONTH AND YEAR. DENIES DEPRESSION,ANXIETY AND PAIN. ATTENDED GROUP AND HAD CHEERFUL AFFECT. NO INAPPROPRIATE BEHAVIORS NOTED.
[2017-03-13] MEDS: SYNTHROID PO SCH (05:35)
--- NOTE | 2017-03-13 06:07 | NUR ---
REST PT. HAS RESTED IN BED WITH EYES CLOSED FOR 7.75 HOURS THIS SHIFT.
[2017-03-13] MEDS: VITAMIN D PO SCH (07:41)
[2017-03-13] MEDS: CELEXA PO SCH (07:41)
[2017-03-13] MEDS: COGENTIN PO SCH (07:41)
[2017-03-13] MEDS: CLARITIN PO SCH (07:41)
[2017-03-13] MEDS: ZYPREXA ZYDIS SL SCH ×2 (07:41→20:00)
[2017-03-13] MEDS: FLONASE NS SCH (07:42)
[2017-03-13 08:00] VITALS: BP 121/60
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
[2017-03-13 19:30] VITALS: BP 131/74
[2017-03-13] MEDS: LIPITOR PO SCH (20:00)
[2017-03-13] MEDS: DEPAKOTE ER PO SCH (20:00)
[2017-03-14] MEDS: SYNTHROID PO SCH (05:34)
--- NOTE | 2017-03-14 07:39 | NUR ---
BEHAVIOR NOTE: Patient is sitting in day room breakfast served but refusing to eat whats on her tray stating " I didn't order this!" "I'm not on a Cardiac diet" Attempted to redirect patient explaining that she had been eating Cardiac Diet since admission and that she liked scrambled eggs. Patient continued to refuse breakfast, agitated behavior and demanding more coffee.
[2017-03-14] MEDS: ZYPREXA ZYDIS SL SCH ×2 (07:41→20:30)
[2017-03-14] MEDS: CLARITIN PO SCH (07:41)
[2017-03-14] MEDS: CELEXA PO SCH (07:41)
[2017-03-14] MEDS: VITAMIN D PO SCH (07:41)
[2017-03-14] MEDS: COGENTIN PO SCH (07:41)
[2017-03-14] MEDS: FLONASE NS SCH (07:42)
[2017-03-14 08:04] VITALS: BP 116/73
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
[2017-03-14 19:15] VITALS: BP 115/62
[2017-03-14] MEDS: LIPITOR PO SCH (20:30)
[2017-03-14] MEDS: DEPAKOTE ER PO SCH (20:30)
[2017-03-15] MEDS: SYNTHROID PO SCH (05:50)
[2017-03-15 07:24] VITALS: BP 108/48
[2017-03-15] MEDS: VITAMIN D PO SCH (09:18)
[2017-03-15] MEDS: COGENTIN PO SCH (09:18)
[2017-03-15] MEDS: CLARITIN PO SCH (09:18)
[2017-03-15] MEDS: CELEXA PO SCH (09:19)
[2017-03-15] MEDS: ZYPREXA ZYDIS SL SCH ×2 (09:19→20:38)
[2017-03-15] MEDS: FLONASE NS SCH (09:19)
--- NOTE | 2017-03-15 09:24 | PRM.PN ---
Mood: UP AND DOWN, PROBLEMS WITH ANGER AND IRRITABILITY Sleep: SLEEPING WELL AT NIGHT Appetite: NORMAL APPETITE Suidical thoughts: NONE REPORTED Homicidal thoughts: NONE REPORTED Recent stressors: STRESS OF MENTAL ILLNESS Family support: LIMITED Aggressive Behavior: SOME VERBAL AGGRESSION Ability to Perform ADL'sc: ABLE TO DO HER ADLS Psychotic sympstoms: DELUSIONAL THINKING, PARANOIA, HALLUCINATIONS Manic Symptoms: MOOD SWINGS, RACING THOUGHTS Living situation: [facility] [place] Illicit Drug usec: NONE REPORTED Alcoholo use: NONE REPORTED Tobacco use: USES TOBACCO OUTSIDE THIS FACILITY Family,PT,Surgical,&Current HX: Anxity Symptoms: MODERATE ANXIETY LEVEL Anger/Irritablility: PROBLEMS WITH ANGER AND IRRITABILITY Muscle Strength & Tone: WNL Gait & Station: WNL Appearance: Appears older, Well groomed/hygience, Casual attire, Normal weight Attitude & Behaviour: Cooperative/Pleasant, Good eye contact, Psychomotor agitation Mood & Affect: Expansive, Iabile, Blunted, Angry, Depressed Orientation: Fully oriented per interv Attention/Concentration: Fair attention, Fair concentration Speech: Pressured, hyperverbal Judgement/Insight: Poor judgement, Poor insight Thought Process: Loose, Tangential Language: Polish Thought content/Abnormal/Psych: A/V Pichardo, Delusions Fund of Knowledge: WNL Associations: WNL/Normal Associations Memory (recent and remote): Gross int/not form assess Constitutional: None Neurological: None Psychiatric: Depressed, Anxious, Psychosis [place] I: BIPOLAR DISORDER WITH PSYCHOTIC FEATURES; GENERALIZED ANXIETY DISORDER [place] II: DEFERRED [place] III: REFER TO PMH/MEDICAL CHART [place] IV: STRESS OF MENTAL ILLNESS [place] V: GAF=30 Assessment/Plan Assessment/Plan Assessment/Plan First Vital Signs Date Time Temp Pulse Resp B/P (MAP) Pulse Ox O2 Delivery O2 Flow Rate FiO2 03/06/17 15:24 98.3 83 18 95 03/06/17 17:19 131/79 (96) 03/06/17 17:32 Room Air Last Vital Signs Date Time Temp Pulse Resp B/P (MAP) Pulse Ox O2 Delivery O2 Flow Rate FiO2 03/15/17 07:24 98.4 68 18 108/48 (68) 95 Room Air THE PATIENT WAS SEEN BY DR. SILVA FACE TO FACE ALONG WITH THE TREATMENT TEAM. THE PATIENT HAS MOOD SWINGS. THE PATIENT HAS PROBLEMS WITH ANGER AND IRRITABILITY. THE PATIENT HAS BEEN CURSING AT STAFF AT TIMES. THE PATIENT HAS BEEN TAKING HER MEDICATIONS. THE PATIENT SLEPT 6.5 HOURS LAST NIGHT. THE PATIENT HAD A DEPAKOTE LEVEL OF 44 ON 03/14/17. THE PATIENT DENIES SI OR HI. THE PATIENT CAME FROM AN [facility]AC[facility] IN [place], [place]. THE PATIENT HAS DELUSIONAL THINKING. ASSESSMENT: BIPOLAR DISORDER WITH PSYCHOTIC FEATURES; GENERALIZED ANXIETY DISORDER PLAN: 1) CONTINUE [facility] MANAGEMENT. 2) INCREASE DEPAKOTE ER TO 1000MG PO QHS. CONTINUE OTHER MEDICATIONS AT CURRENT DOSES. THE PATIENT AND STAFF WERE AGREEABLE WITH THE PLAN. Problems: (1) Psychosis Status: Acute ICD Code: F29 - Unspecified psychosis not due to a substance or known physiological condition SNOMED: 99492124 (2) Dementia with behavioral disturbance Status: Acute ICD Code: F03.91 - Unspecified dementia with behavioral disturbance SNOMED: [id number] Patient History: RADHA SILVA IV, MD March 15, 2017 09:24
--- NOTE | 2017-03-15 10:32 | NUR ---
Status Pt is alert and oriented x 3. Has flat, cooperative affect (uncooperative @ times.) Pt was seen by Dr. Salinas and tx team, orders received to increase scheduled depakote, see EMAR. Denies depression, states, "I'm doing pretty good. I'm a little anxious, I can't sit still." Pt does exhibit varying delusions, states, "I think people have been lying about me. [employer] is keeping my money, that's why I left there. 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
[2017-03-15] MEDS ORDERED: DEPAKOTE ER PO ONE (18:37)
[2017-03-15 19:29] VITALS: BP 103/53
[2017-03-15] MEDS: DEPAKOTE ER PO SCH (20:38)
[2017-03-15] MEDS: LIPITOR PO SCH (20:38)
--- NOTE | 2017-03-15 20:44 | NUR ---
BEHAVIORS ORIENTED TIMES THREE. DENIES DEPRESSION,ANXIETY AND PAIN. ATE SNACK AND 1:1 WITH PT. FOR GROUP. SHE TOLD WHEN ASKED, WHAT DOES SHE DO TO COPE WITH STRESS AND PT. TOLD SHE SLEEPS WHEN STRESSED IF SHE CAN. SHE TOLD HOW SHE USED TO ENJOY SWIMMING AND BOWLING.
[2017-03-16] MEDS: SYNTHROID PO SCH (06:04)
[2017-03-16 07:41] VITALS: BP 111/71
[2017-03-16] MEDS: CELEXA PO SCH (08:14)
[2017-03-16] MEDS: VITAMIN D PO SCH (08:14)
[2017-03-16] MEDS: FLONASE NS SCH ×2 (08:14→08:18)
[2017-03-16] MEDS: COGENTIN PO SCH (08:14)
[2017-03-16] MEDS: ZYPREXA ZYDIS SL SCH ×2 (08:14→20:33)
[2017-03-16] MEDS: CLARITIN PO SCH (08:14)
--- NOTE | 2017-03-16 08:41 | NUR ---
Status Pt is alert and oriented x 3. Has labile affect, but does socialize with staff @ times. Pt denies depression and anxiety @ this time. Pt has stated several times this A.M., "I don't need to be here." "I want to go back to [facility]." "I don't want to be in a place where I can't smoke." "There's no sense in me being here any longer." "Am I going to get to leave today?" Pt is able to be redirected with verbalization. Encouraged to stay in day room for group activity, denies @ this time. Lying in SF position in bed, awake, chest rise and fall symmetrical and nonlabored, no s/s of distress noted.
--- NOTE | 2017-03-16 14:44 | PRM.PN ---
Mood: UP AND DOWN, ELEVATED MOOD, LABILE MOOD Sleep: SLEEPING WELL, SLEPT 8.25 HOURS LAST NIGHT Appetite: NORMAL APPETITE Suidical thoughts: NONE REPORTED Homicidal thoughts: NONE REPORTED Recent stressors: STRESS OF MENTAL ILLNESS Family support: LIMITED Aggressive Behavior: NONE REPORTED, HAD BEEN VERBALLY AGGRESSIVE IN THE PAST Ability to Perform ADL'sc: ABLE TO DO HER ADLS Psychotic sympstoms: SOME DELUSIONAL THINKING Manic Symptoms: MOD SWINGS, RACING THIUGHTS, HYPER-VERBAL Living situation: LIVES AT [facility] IN [address], [place] Illicit Drug usec: NONE REPORTED Alcoholo use: NONE REPORTED Tobacco use: SMOKES CIGARETTES OUTSIDE THIS FACILITY Family,PT,Surgical,&Current HX: Anxity Symptoms: MODERATE ANXIETY LEVEL Anger/Irritablility: PROBLEMS WITH ANGER AND IRRITABILITY Muscle Strength & Tone: WNL Gait & Station: WNL Appearance: Well groomed/hygience, Casual attire, Overweight Attitude & Behaviour: Cooperative/Pleasant, Good eye contact Mood & Affect: Euthymic/appr/congruent, Iabile, Angry, Depressed Orientation: Fully oriented per interv Attention/Concentration: Fair attention, Fair concentration Speech: Pressured, hyperverbal Judgement/Insight: Poor judgement, Poor insight Thought Process: Linear/goal directed Language: Icelandic Thought content/Abnormal/Psych: Delusions Fund of Knowledge: WNL Associations: WNL/Normal Associations Memory (recent and remote): Gross int/not form assess Constitutional: None Neurological: None Psychiatric: Depressed, Anxious, Psychosis [place] I: BIPOLAR DISORDER WITH PSYCHOTIC FEATURES; GENERALIZED ANXIETY DISORDER [place] II: DEFERRED [place] III: REFER TO PMH/MEDICAL CHART [place] IV: STRESS OF MENTAL ILLNESS [place] V: GAF=30 Assessment/Plan Assessment/Plan Assessment/Plan First Vital Signs Date Time Temp Pulse Resp B/P (MAP) Pulse Ox O2 Delivery O2 Flow Rate FiO2 03/06/17 15:24 98.3 83 18 95 03/06/17 17:19 131/79 (96) 03/06/17 17:32 Room Air Last Vital Signs Date Time Temp Pulse Resp B/P (MAP) Pulse Ox O2 Delivery O2 Flow Rate FiO2 03/16/17 07:41 97.5 93 20 111/71 (84) 96 Room Air THE PATIENT WAS SEEN BY DR. SILVA VIA TELEMEDICINE EQUIPMENT (VSEE) ALONG WITH THE TREATMENT TEAM. THE PATIENT STRUGGLES WITH RACING THOUGHTS AND MOOD SWINGS. THE PATIENT DENIES AUDITORY OR VISUAL HALLUCINATIONS. THE PATIENT HS SOME DELUSIONAL THINKING. THE PATIENT ACTS CHILD-LIKE AT TIMES. THE PATIENT IS TAKING HER MEDICATIONS. THE PATIENT DENIES PROBLEMS WITH HER MEDICATIONS. ASSESSMENT: BIPOLAR DISORDER WITH PSYCHOTIC FEATURES; GENERALIZED ANXIETY DISORDER PLAN: 1) CONTINUE [facility] MANAGEMENT. 2) CONTINUE CURRENT MEDICATIONS. STAFF AGREEABLE WITH THE PLAN. Problems: (1) Schizoaffective disorder, bipolar type Status: Chronic ICD Code: F25.0 - Schizoaffective disorder, bipolar type SNOMED: [id number] Patient History: RADHA SILVA IV, MD March 16, 2017 14:44
[2017-03-16] MEDS: TYLENOL PO PRN (14:47)
--- NOTE | 2017-03-16 14:59 | NUR ---
VSEE Pt was seen by Dr. Salinas via telemed. Orders received for valproic level on 03/20/17, see EMR.
[2017-03-16 19:15] VITALS: BP 111/68
[2017-03-16] MEDS: LIPITOR PO SCH (20:33)
[2017-03-16] MEDS: DEPAKOTE ER PO SCH (20:33)
--- NOTE | 2017-03-17 01:38 | NUR ---
BEHAVIORS PT. ORIENTED TIMES THREE. DENIES DEPRESSION,ANXIETY AND PAIN. ATTENDED GROUP AND PARTICIPATED IN DISCUSSION FOLLOWING READING OUT LOUD OF CURRENT EVENTS.
--- NOTE | 2017-03-17 05:06 | NUR ---
BEHAVIORS PT. CAME TO NURSE'S DESK AND STATED ," LET ME OUT OF HERE,I WANT TO GO RIGHT NOW." WHEN NURSE TOLD HER SHE CAN GO WHEN THE DOCTOR DISCHARGES HER ,SHE CALLED NURSE A BITCH AND WENT BACK TO HER ROOM.
[2017-03-17] MEDS: SYNTHROID PO SCH (05:54)
--- NOTE | 2017-03-17 06:15 | NUR ---
BEHAVIORS PT. IN BED,AWAKE, TALKING LOUDLY TO SELF . HAS RESTED IN BED WITH EYES CLOSED FOR 6.50 HOURS THIS SHIFT.
[2017-03-17] MEDS: VITAMIN D PO SCH (07:27)
[2017-03-17 07:28] VITALS: BP 115/72
[2017-03-17] MEDS: CLARITIN PO SCH (07:28)
[2017-03-17] MEDS: COGENTIN PO SCH (07:28)
[2017-03-17] MEDS: ZYPREXA ZYDIS SL SCH ×2 (07:28→20:24)
[2017-03-17] MEDS: FLONASE NS SCH (07:28)
[2017-03-17] MEDS: CELEXA PO SCH (07:28)
--- NOTE | 2017-03-17 11:27 | NUR ---
behaviors pt states that she is very anxious and requests an ativan. ativan administered per prn order no distress noted. will monitor
[2017-03-17] MEDS: ATIVAN PO PRN (11:28)
--- NOTE | 2017-03-17 14:40 | NUR ---
BEHAVIOR NOTE: Patient has been calm and cooperative and pleasant. Addendum: 03/17/17 at 1749 by EVELIA Decker RN At approx 1745 patient became agitated demanding to go across the street and smoke. She was easily redirected and went to her room stating "I'm never coming here again". Ativan PRN was offered for anxiety and patient refused.
[2017-03-17 19:17] VITALS: BP 133/74
[2017-03-17] MEDS: DEPAKOTE ER PO SCH (20:24)
[2017-03-17] MEDS: LIPITOR PO SCH (20:24)
[2017-03-18] MEDS: SYNTHROID PO SCH (06:13)
[2017-03-18 07:29] VITALS: BP 128/81
--- NOTE | 2017-03-18 07:30 | NUR ---
Behaviors pt refusing to eat breakfast, states she doesnt want that. pt repeatedly requesting coffee but refuses to eat breakfast. (pt did have one cup of coffee.) pt then requesting to go smoke.. pt instructed that she could not smoke here but could get a nicotene patch if she would like. pt refuses. pt then stomps off to her room. pt was checked on minutes later where she has laying in bed awake. pt refuses to come to group.
[2017-03-18] MEDS: VITAMIN D PO SCH (07:33)
[2017-03-18] MEDS: CELEXA PO SCH (07:33)
[2017-03-18] MEDS: CLARITIN PO SCH (07:33)
[2017-03-18] MEDS: ZYPREXA ZYDIS SL SCH ×2 (07:33→20:17)
[2017-03-18] MEDS: COGENTIN PO SCH (07:33)
[2017-03-18] MEDS: FLONASE NS SCH (07:33)
--- NOTE | 2017-03-18 18:30 | NUR ---
Behaviors pt refusing to participate in group. pt did eat lunch and supper but went back to her room as soon as she was done. pt was given choice of group activity but did not participate. pt did comment again about going to smoke. pt was instructed that smoking was not allowed again. pt came to day room a few times but would not stay and participate. pt denies anxiety, depression, hallucinations and SI when questioned this am.
[2017-03-18 19:45] VITALS: BP 102/71
[2017-03-18] MEDS: DEPAKOTE ER PO SCH (20:17)
[2017-03-18] MEDS: LIPITOR PO SCH (20:17)
[2017-03-19] MEDS: SYNTHROID PO SCH (05:51)
[2017-03-19 07:39] VITALS: BP 110/65
[2017-03-19] MEDS: CELEXA PO SCH (08:11)
[2017-03-19] MEDS: ZYPREXA ZYDIS SL SCH ×2 (08:11→21:13)
[2017-03-19] MEDS: VITAMIN D PO SCH (08:11)
[2017-03-19] MEDS: COGENTIN PO SCH (08:11)
[2017-03-19] MEDS: CLARITIN PO SCH (08:11)
[2017-03-19] MEDS: FLONASE NS SCH (08:15)
--- NOTE | 2017-03-19 09:30 | PRM.PN ---
Mood: "GOOD", DENIES FEELING DEPRESSED Sleep: SLEPT 8.25 HOURS LAST NIGHT, SLEEPING WELL AT NIGHT Appetite: NORMAL APPETITE Suidical thoughts: NONE REPORTED Homicidal thoughts: NONE REPORTED Recent stressors: STRESS OF MENTAL ILLNESS Family support: LIMITED Aggressive Behavior: CAN BE VERBALLY AGGRESSIVE Ability to Perform ADL'sc: YES Psychotic sympstoms: DELUSIONAL THINKING, DENIES HALLUCINATIONS Manic Symptoms: MOOD SWINGS, RACING THOUGHTS, CAN BE IRRITABLE Living situation: [facility] AT [facility] [place], [place] Illicit Drug usec: NONE REPORTED Alcoholo use: NONE REPORTED Tobacco use: NONE REPORTED Family,PT,Surgical,&Current HX: Anxity Symptoms: RECEIVED PRN ATIVAN THIS PAST MONDAY Anger/Irritablility: SOME ANGER AND IRRITABILITY Muscle Strength & Tone: WNL Gait & Station: WNL Appearance: Well groomed/hygience, Casual attire, Appears age stated, Overweight Attitude & Behaviour: Cooperative/Pleasant, Good eye contact Mood & Affect: Iabile Orientation: Fully oriented per interv Attention/Concentration: Fair attention, Fair concentration Speech: Pressured, hyperverbal Judgement/Insight: Poor judgement, Poor insight Thought Process: Loose, Tangential Language: Czech Thought content/Abnormal/Psych: Delusions Fund of Knowledge: Other Associations: WNL/Normal Associations Memory (recent and remote): Gross int/not form assess Constitutional: None Neurological: None Psychiatric: None [place] I: BIPOLAR DISORDER WITH PSYCHOTIC FEATURES; GENERALIZED ANXIETY DISORDER [place] II: DEFERRED [place] III: REFER TO PMH/MEDICAL CHART [place] IV: STRESS OF MENTAL ILLNESS [place] V: GAF=30 Assessment/Plan Assessment/Plan Assessment/Plan First Vital Signs Date Time Temp Pulse Resp B/P (MAP) Pulse Ox O2 Delivery O2 Flow Rate FiO2 03/06/17 15:24 98.3 83 18 95 03/06/17 17:19 131/79 (96) 03/06/17 17:32 Room Air Last Vital Signs Date Time Temp Pulse Resp B/P (MAP) Pulse Ox O2 Delivery O2 Flow Rate FiO2 03/19/17 07:39 96.4 83 20 110/65 (80) 99 Room Air THE PATIENT WAS SEEN BY DR. SILVA VIA TELEMEDICINE EQUIPMENT (VSEE) ALONG WITH THE TREATMENT TEAM. THE PATIENT IS BEING TREATED FOR BIPOLAR DISORDER WITH PSYCHOTIC FEATURES. THE PATIENT HAS REPORTEDLY BEEN TAKING HER MEDICATIONS. SHE HAS A DEPAKOTE LEVEL DUE TOMORROW MORNING. THE PATIENT HAS CRAVINGS TO SMOKE CIGARETTES. THE PATIENT HAS NOT INTENTION TO QUIT SMOKING. SHE DECLINES A NICOTINE PATCH. THE PATIENT VOICED NO CONCERNS. THE PATIENT HAS A SUPPORTIVE BROTHER THAT SHE SPEAKS WITH DAILY. THE PATIENT HAS BEEN THREE TIMES IN THE PAST. THE PATIENT HAS TWO CHILDREN. ASSESSMENT: BIPOLAR DISORDER WITH PSYCHOTIC FEATURES; GENERALIZED ANXIETY DISORDER PLAN: 1) CONTINUE [facility] MANAGEMENT. 2) CONTINUE CURRENT MEDICATIONS. THE PATIENT WAS AGREEABLE WITH THE PLAN. Problems: (1) Schizoaffective disorder, bipolar type Status: Chronic ICD Code: F25.0 - Schizoaffective disorder, bipolar type SNOMED: [id number] Patient History: RADHA SILVA IV, MD March 19, 2017 09:30
[2017-03-19] MEDS ORDERED: CITA10TA8 PO (09:57)
[2017-03-19] MEDS ORDERED: DIVA500T4 PO (09:57)
[2017-03-19] MEDS ORDERED: LORA-448 PO (09:57)
[2017-03-19] MEDS ORDERED: OLAN5TAB5 SL (09:57)
--- NOTE | 2017-03-19 10:37 | NUR ---
BEHAVIOR NOTE: Patient is refusing cessation for smoking medication at this time and has stated that she plans to resume smoking upon discharge.
--- NOTE | 2017-03-19 16:30 | NUR ---
BEHAVIOR NOTE: Patient has not wanted to participate in afternoon groups. She has retreated to her room and states "I don't want to be here". She has not been aggressive.
[2017-03-19 19:20] VITALS: BP 129/66
[2017-03-19] MEDS: DEPAKOTE ER PO SCH (21:13)
[2017-03-19] MEDS: LIPITOR PO SCH (21:13)
[2017-03-20] MEDS: SYNTHROID PO SCH (05:41)
[2017-03-20] MEDS: CLARITIN PO SCH (07:14)
[2017-03-20] MEDS: VITAMIN D PO SCH (07:14)
[2017-03-20] MEDS: CELEXA PO SCH (07:14)
[2017-03-20] MEDS: ZYPREXA ZYDIS SL SCH ×2 (07:14→20:55)
[2017-03-20] MEDS: COGENTIN PO SCH (07:14)
[2017-03-20] MEDS: FLONASE NS SCH (07:15)
[2017-03-20 07:32] VITALS: BP 112/70
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
[2017-03-20] MEDS: MILK OF MAGNESIA PO PRN (08:08)
--- NOTE | 2017-03-20 08:09 | NUR ---
milk of mag pt states LBM was 4 days ago. milk of mag administered per prn order
[2017-03-20 19:36] VITALS: BP 132/58
[2017-03-20] MEDS: LIPITOR PO SCH (20:55)
[2017-03-20] MEDS: DEPAKOTE ER PO SCH (20:55)
--- NOTE | 2017-03-21 00:30 | NUR ---
BEHAVIORS PT. ORIENTED TIMES THREE. RATED DEPRESSION AND PAIN 0 AND ANXIETY 2. ATTENDED GROUP AND ATE SNACKS. RESTING IN BED WITH EYES CLOSED AT THIS TIME.
[2017-03-21] MEDS: TYLENOL PO PRN (02:38)
[2017-03-21] MEDS: SYNTHROID PO SCH (06:12)
[2017-03-21 07:29] VITALS: BP 113/71
[2017-03-21] MEDS: COGENTIN PO SCH (07:44)
[2017-03-21] MEDS: VITAMIN D PO SCH (07:44)
[2017-03-21] MEDS: CLARITIN PO SCH (07:44)
[2017-03-21] MEDS: CELEXA PO SCH (07:45)
[2017-03-21] MEDS: ZYPREXA ZYDIS SL SCH ×2 (07:45→20:45)
[2017-03-21] MEDS: FLONASE NS SCH (07:45)
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
[2017-03-21] MEDS ORDERED: OLAN5TAB5 SL (09:01)
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
[2017-03-21] MEDS ORDERED: ZYPREXA ZYDIS ONE (18:40)
[2017-03-21 19:06] VITALS: BP 111/75
[2017-03-21] MEDS: LIPITOR PO SCH (20:44)
[2017-03-21] MEDS: DEPAKOTE ER PO SCH (20:45)
[2017-03-22] MEDS: SYNTHROID PO SCH (06:11)
[2017-03-22 07:25] VITALS: BP 100/62
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
[2017-03-22] MEDS: FLONASE NS SCH (09:00)
[2017-03-22] MEDS: CELEXA PO SCH (09:01)
[2017-03-22] MEDS: ZYPREXA ZYDIS SL SCH ×2 (09:01→20:18)
[2017-03-22] MEDS: VITAMIN D PO SCH (09:01)
[2017-03-22] MEDS: CLARITIN PO SCH (09:01)
[2017-03-22] MEDS: COGENTIN PO SCH (09:01)
[2017-03-22] MEDS: TYLENOL PO PRN (09:02)
[2017-03-22 19:24] VITALS: BP 108/62
[2017-03-22] MEDS: LIPITOR PO SCH (20:18)
[2017-03-22] MEDS: ATIVAN PO PRN (20:18)
[2017-03-22] MEDS: DEPAKOTE ER PO SCH (20:19)
--- NOTE | 2017-03-22 20:32 | NUR ---
medications Patient states she is upset and anxious and wants a shot to help her sleep, RN notified and 1mg ativan given po at 2018 per prn orders
[2017-03-23] MEDS: SYNTHROID PO SCH (05:52)
[2017-03-23] MEDS: CELEXA PO SCH (07:47)
[2017-03-23] MEDS: CLARITIN PO SCH (07:47)
[2017-03-23] MEDS: COGENTIN PO SCH (07:47)
[2017-03-23] MEDS: FLONASE NS SCH (07:48)
[2017-03-23] MEDS: ZYPREXA ZYDIS SL SCH ×2 (07:48→20:34)
[2017-03-23] MEDS: VITAMIN D PO SCH (07:48)
[2017-03-23 08:30] VITALS: BP 106/74
--- NOTE | 2017-03-23 09:57 | NUR ---
BEHAVIOR NOTE: Patient has been calm and cooperative this morning. She has participated in groups and has done reminiscing of pictures of famous people. She has also participated in playing Svbtle and she was engaged and excited to win a [email or web address] set. No aggressive behavior noted.
[2017-03-23] MEDS: TYLENOL PO PRN (10:30)
--- NOTE | 2017-03-23 10:53 | NUR ---
BEHAVIOR NOTE: Patient came out of her room and called the BRICK CHIMNEY BUILDER and knurling machine operator "Stupid". She was aggitated and walked away.
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
[2017-03-23 19:51] VITALS: BP 122/67
[2017-03-23] MEDS: LIPITOR PO SCH (20:34)
[2017-03-23] MEDS: DEPAKOTE ER PO SCH (20:34)
[2017-03-24] MEDS: SYNTHROID PO SCH (05:41)
[2017-03-24 07:30] VITALS: BP 105/59
[2017-03-24] MEDS: FLONASE NS SCH (08:08)
[2017-03-24] MEDS: ZYPREXA ZYDIS SL SCH ×2 (08:08→20:15)
[2017-03-24] MEDS: COGENTIN PO SCH (08:08)
[2017-03-24] MEDS: VITAMIN D PO SCH (08:08)
[2017-03-24] MEDS: CLARITIN PO SCH (08:08)
[2017-03-24] MEDS: CELEXA PO SCH (08:08)
[2017-03-24 20:00] VITALS: BP 103/74
[2017-03-24] MEDS: DEPAKOTE ER PO SCH (20:15)
[2017-03-24] MEDS: LIPITOR PO SCH (20:15)
--- NOTE | 2017-03-24 22:45 | NUR ---
Pt in bed with eyes closed. Resps nonlaboured. No s/s of distress or discomfort noted. Will continue to monitor.
--- NOTE | 2017-03-25 02:30 | NUR ---
Pt awake, states she needs Ativan because she is unable to sleep. Pt has slept most of night. Pt encouraged to return to bed. Pt voiced understanding.
--- NOTE | 2017-03-25 03:24 | NUR ---
Pt resting with eyes closed. Resps nonlaboured. No s/s of distress or discomfort noted.
[2017-03-25] MEDS: SYNTHROID PO SCH (05:38)
[2017-03-25 07:52] VITALS: BP 109/61
[2017-03-25] MEDS: FLONASE NS SCH (08:17)
[2017-03-25] MEDS: VITAMIN D PO SCH (08:17)
[2017-03-25] MEDS: CELEXA PO SCH (08:17)
[2017-03-25] MEDS: COGENTIN PO SCH (08:17)
[2017-03-25] MEDS: ZYPREXA ZYDIS SL SCH ×2 (08:17→21:08)
[2017-03-25] MEDS: CLARITIN PO SCH (08:17)
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
--- NOTE | 2017-03-25 10:06 | NUR ---
Placement Pt came to nurses' station and reported that she changed her mind, and that she is willing to go back to [facility] until they can find other placement for her.
[2017-03-25 19:37] VITALS: BP 116/57
--- NOTE | 2017-03-25 19:41 | NUR ---
status During assessment, pt is alert and oriented x 3 is pleasant and cooperative. Denies feelings of depression, anxiety or SI/HI. also denies having any pain. Pt is offered a snack and fluid of choice. ate and drank 100%.
--- NOTE | 2017-03-25 20:30 | NUR ---
bed pt is in bed sleeping at this time. no S/S of distress present at this time. will continue to monitor closely.
[2017-03-25] MEDS: DEPAKOTE ER PO SCH (20:42)
[2017-03-25] MEDS: LIPITOR PO SCH (20:42)
[2017-03-25] MEDS ORDERED: ZYPREXA ZYDIS ONE (21:04)
--- NOTE | 2017-03-26 01:18 | NUR ---
pt continues to sleep with no S/S of distress present, will continue to monitor closely.
[2017-03-26] MEDS: SYNTHROID PO SCH (05:53)
[2017-03-26] MEDS: CLARITIN PO SCH (07:25)
[2017-03-26] MEDS: VITAMIN D PO SCH (07:25)
[2017-03-26] MEDS: COGENTIN PO SCH (07:26)
[2017-03-26] MEDS: CELEXA PO SCH (07:26)
[2017-03-26 07:35] VITALS: BP 106/58
[2017-03-26] MEDS ORDERED: ZYPREXA ZYDIS ONE ×2 (07:36→07:37)
[2017-03-26] MEDS: ZYPREXA ZYDIS SL SCH ×2 (07:40→20:42)
--- NOTE | 2017-03-26 08:28 | NUR ---
Status Pt is alert and oriented x 3, has pleasant affect. Pt withdraws to room, but will come out to day room with encouragement. Denies depression/anxiety/SI/HI. Has not exhibited any delusions or paranoid thoughts this A.M.
[2017-03-26] MEDS: FLONASE NS SCH (08:34)
--- NOTE | 2017-03-26 19:35 | NUR ---
Pt is alert and oriented x 3, has pleasant affect. Pt is interacting with staff and other pts. Pt is in day room at this time, offered snack and ate 100%. Denies depression/anxiety/SI/HI. Has not exhibited any delusions or paranoid thoughts this evening.
--- NOTE | 2017-03-26 20:34 | NUR ---
pt states she is ready to go to her room and lay in bed. denies needs or pain at present. will continue to monitor closely.
[2017-03-26] MEDS: LIPITOR PO SCH (20:41)
[2017-03-26] MEDS: DEPAKOTE ER PO SCH (20:41)
[2017-03-26 20:45] VITALS: BP 126/60
[2017-03-27] MEDS: SYNTHROID PO SCH (06:01)
[2017-03-27] MEDS: CELEXA PO SCH (07:10)
[2017-03-27] MEDS: VITAMIN D PO SCH (07:10)
[2017-03-27] MEDS: CLARITIN PO SCH (07:10)
[2017-03-27] MEDS: COGENTIN PO SCH (07:10)
[2017-03-27] MEDS: ZYPREXA ZYDIS SL SCH ×2 (07:11→20:13)
[2017-03-27] MEDS: FLONASE NS SCH (07:11)
[2017-03-27 07:34] VITALS: BP 111/59
--- NOTE | 2017-03-27 09:00 | NUR ---
notes Pt alert oriented pleasant today. requested coffee and sat in day room and drank it attempting to socialize with other patients in the room. pt sits in day room for a while then goes back to her room and lays down for a while but returns. no outbursts seen at present time. pt anxious to go home she reports.
--- NOTE | 2017-03-27 14:05 | NUR ---
[facility]SEE pt seen by Dr Clark by telemed. pt happy about possiblity of going home on Monday. no new meds or orders.
--- NOTE | 2017-03-27 15:30 | NUR ---
Phone call pt requesting to call her brother. no answer, message left to return Terris call. pt states. My family is not real helpful. pt amb to room to lay down .
--- NOTE | 2017-03-27 19:33 | NUR ---
BEHAVIOR NOTE: Patient is excited about upcoming discharge on Monday. She is calm and cooperative at present time.
--- NOTE | 2017-03-27 19:36 | NUR ---
BEHAVIOR NOTE: Patient is calm and cooperative and pleasant. She is hyperverbal and talking out loud. She is confused and disoriented. She is not combative.
[2017-03-27] MEDS: LIPITOR PO SCH (20:12)
[2017-03-27] MEDS: DEPAKOTE ER PO SCH (20:13)
[2017-03-27 20:21] VITALS: BP 128/64
[2017-03-28] MEDS: ATIVAN PO PRN (02:15)
--- NOTE | 2017-03-28 02:16 | NUR ---
medications Patient states she is anxious and cannot sleep request something to calm her so she can sleep, RN notiied, ativan 1mg given per prn orders at this time
[2017-03-28] MEDS: SYNTHROID PO SCH (05:34)
[2017-03-28 07:12] VITALS: BP 106/61
[2017-03-28] MEDS: CELEXA PO SCH (07:48)
[2017-03-28] MEDS: VITAMIN D PO SCH (07:48)
[2017-03-28] MEDS: COGENTIN PO SCH (07:48)
[2017-03-28] MEDS: CLARITIN PO SCH (07:48)
[2017-03-28] MEDS: ZYPREXA ZYDIS SL SCH (07:48)
[2017-03-28] MEDS: FLONASE NS SCH (07:51)
--- NOTE | 2017-03-28 09:24 | NUR ---
Dr. Clark Spoke to Dr. Clark regarding d/c plan, Dr. Clark reports that he will discharge pt today.
--- NOTE | 2017-03-28 09:28 | NUR ---
[facility] called for arrangement of transport. TORIE Elizabeth to call back.
--- NOTE | 2017-03-28 09:32 | NUR ---
Status Pt is A&O x 3, has pleasant, cooperative affect. Pt reports that she is having a check delivered to facility, informed that finances are not handle in hospital and checks stay @ facility where pt resides. Redirected easily. Has requested to leave because she is ready to go and smoke. Cooperative with physical assessment, denies depression/anxiety/SI/HI. States, "I'm ready to go back to [facility]. I don't want to stay here anymore, I want to go smoke." Pt informed of Dr. Clark' d/c plans, agrees with plan.
--- NOTE | 2017-03-28 14:27 | NUR ---
Off unit Pt transported off unit via w/c by transportation services, alongside Lily López LVN, down to private vehicle. No s/s of distress noted. Addendum: 03/28/17 at 1551 by EVELIA Esquivel RN Incorrect time
[2017-03-28 15:27] VITALS: BP 106/61
--- NOTE | 2017-03-28 15:27 | NUR ---
Off unit Pt transported off unit via w/c by transportation services, alongside Lily López LVN, down to private vehicle. No s/s of distress noted.
--- NOTE | 2017-03-28 16:03 | NUR ---
Report Report called and given to Alexandra Braden LVN @ [facility] in [place].
--- NOTE | 2017-03-29 10:26 | PNH ---
DATE: 03/27/2017 PSYCHIATRIC PROGRESS NOTE TIME: 2:00-2:20. HISTORY OF PRESENT ILLNESS: This patient is an elderly female who has a diagnosis of schizoaffective disorder, bipolar type who presented from the long term in [place]. The patient has been in the psychiatric hospital for several days and not responded, discharged back to the long term, then became extremely psychotic, delusional, agitated, labile, threatening, sent to [facility] under court order. Positive psychosis on presentation. She felt people in the long term were going to kill her and that she is going to kill them before they even Little depressed. No manic symptoms, disturbances in sleep, appetite, energy and concentration. The patient was placed on medication and treated hospital and has shown significant improvement with decrease and in fact almost resolution of psychosis, depression and lability and likely will be discharged Monday if she shows no further psychosis or depression. OBJECTIVE: VITAL SIGNS: Temperature 96.9, pulse 96, oxygen saturation 98% and blood pressure 111/59. REVIEW OF SYSTEMS: HEENT: Normal. RESPIRATORY: No shortness of breath, coughing or wheezing. CARDIAC: No chest pain or palpitations. GASTROINTESTINAL: No nausea, vomiting, diarrhea or constipation. GENITOURINARY: No difficulty with urination. EXTREMITIES: No swelling or edema. MUSCULOSKELETAL: No muscle pain. NEUROLOGIC: Normal. ENDOCRINE: Normal. MENTAL STATUS EXAMINATION: Reveals an alert female with mildly decreased psychomotor activity. Concentration and memory are intact. Speech and language are normal. Orientation is full. Intelligence is average. Mood assessed as mildly depressed. Affect somewhat constricted. Insight and judgment fair. Thought, decreasing psychosis at this time. ASSESSMENT AND PLAN: DIAGNOSES: AXIS I: Schizoaffective disorder, bipolar type. Depressed on presentation. AXIS II: Deferred. AXIS III: Refer to past medical history. AXIS IV: Stress of mental illness. AXIS V: Current global assessment of functioning of 30. TREATMENT PLAN: 1. This patient was admitted involuntarily at the [facility] and is observed very closely. 2. She is placed on medications, specifically Cogentin 1 mg, Celexa 10 mg, Depakote and Zyprexa 7.5 mg. 3. The patient did participate in all groups, therapies and activities. 4. The patient will be discharged back to the long term setting on Monday if she shows no further psychosis and her mood continues to improve. Long Clark MD DR: RASHID/jackson JOB# [id number]
--- NOTE | 2017-03-29 22:30 | DSH ---
DATE OF DISCHARGE: 03/28/2017 PSYCHIATRIC DISCHARGE SUMMARY HOSPITAL COURSE: This patient is an elderly female diagnosed with schizoaffective disorder, bipolar type, who presented from a halfway in [place]. The patient was psychotic, delusional, agitated, labile and threatening, was sent to the [facility] under court order. She did have psychotic symptoms, delusional thoughts, paranoia, ideas of reference, thought broadcasting, and auditory hallucinations. She felt that people in the halfway are going to kill her and she was going to kill them before that happened. Her mood was depressed with disturbances in sleep, appetite, energy and concentration. With medication and therapy, the patient showed complete resolution of all depressive symptoms and tremendous reduction in all psychotic symptoms as well. She participated fully in all groups, therapies and activities. Medications included Cogentin 1 mg a day, Celexa 10 mg a day, Depakote and Zyprexa 7.5 mg. DISPOSITION AND DIAGNOSES: AXIS I: Schizoaffective disorder, bipolar type. AXIS II: Deferred. AXIS III: Refer to past medical history. AXIS IV: Stress of mental illness. AXIS V: Current global assessment of functioning of 50. DISCHARGE TREATMENT PLAN: 1. This patient will be discharged back to the halfway setting and will remain on the above-mentioned medications. 2. She represents no risk of danger to herself and prognosis is reasonably good at this time. 3. All followup care will be provided by the halfway physician. Long Clark MD DR: RASHID/jackson JOB# [id number]
== END 2017-03-28 15:27 | DRG 885 ==
LOC: ER 14:54 → GP 16:52 → EEVIPCON 16:52
PROVIDERS: ADMIT Psychiatry & Neurology Psychiatry; ATTEND Psychiatry & Neurology Psychiatry
DX: F25.0 Schizoaffective disorder, bipolar type (principal); F03.91 Unspecified dementia, unspecified severity, with behavioral disturbance; F23 Brief psychotic disorder; F29 Unspecified psychosis not due to a substance or known physiological condition; E78.00 Pure hypercholesterolemia, unspecified; F22 Delusional disorders; I25.10 Atherosclerotic heart disease of native coronary artery without angina pectoris; F41.1 Generalized anxiety disorder; F17.210 Nicotine dependence, cigarettes, uncomplicated; E03.9 Hypothyroidism, unspecified; E78.5 Hyperlipidemia, unspecified; I10 Essential (primary) hypertension; E66.9 Obesity, unspecified; R45.850 Homicidal ideations; Z79.899 Other long term (current) drug therapy; Z68.31 Body mass index [BMI] 31.0-31.9, adult
CPT/HCPCS: 36415; 36600; 71020; 80053; 80061; 80164; 80178; 80307; 81002; 82550; 82803; 83036; 83880; 84443; 84484; 85025; 85610; 85730; 86140; 93005; 97003; 97150; 97165; 99285; J3490; G8987; G8988